=== PATIENT | female | born 1955 | race Caucasian/White ===

== ENCOUNTER 2025-03-02 06:34 | Inpatient (IN) | payer MEDICARE, OTHER ==
[~2025-03-02] VITALS: Ht 162.6 cm; Wt 90.7 kg
[2025-03-02] MEDS ORDERED: ANESTHESIA TRAY IN PYXIS 1 EA TRAY MC ONE (06:46)
[2025-03-02] MEDS ORDERED: SEVOFLURANE 250 ML BOTTLE IH ONE (07:04)
[2025-03-02] MEDS ORDERED: FENTANYL PF 100MCG/2ML AMPUL ONE ×2 (07:04→10:37)
[2025-03-02] MEDS ORDERED: SUGAMMADEX SODIUM 200 MG/2 ML VIAL IV ONE (07:04)
[2025-03-02] MEDS ORDERED: LIDOCAINE 2% JEL UROJET 10 ML MM ONE (07:04)
[2025-03-02] MEDS ORDERED: MIDAZOLAM HCL 2 MG/2ML VIAL ONE (07:05)
[2025-03-02] MEDS ORDERED: ROCURONIUM BROMIDE 50 MG/5 ML ONE (07:05)
[2025-03-02] MEDS ORDERED: OXYMETAZOLINE HCL NASAL SPRAY 30 ML BOTTLE NS ONE (07:05)
[2025-03-02 07:22] LABS: INR 1.09 (0.91-1.10)
[2025-03-02] MEDS ORDERED: LIDOCAINE 2%-EPI 1:100,000 30 ML VIAL ONE (07:44)
[2025-03-02] MEDS ORDERED: dexaMETHasone SOD PHOSPHATE 2 ML ONE (07:44)
[2025-03-02] MEDS ORDERED: VANCOMYCIN 1 GM VIAL ONE (07:44)
[2025-03-02 11:30] VITALS: BP 106/69; TEMP 97.5; O2SAT 97
[2025-03-02] MEDS ORDERED: ONDANSETRON HCL/PF 4 MG/2 ML VIAL IV PRN (11:30)
[2025-03-02] MEDS ORDERED: HYDROMORPHONE INJ 2 MG/ML DISP.SYRIN IV PRN (11:30)
[2025-03-02] MEDS ORDERED: BACL10TA PO (11:48)
[2025-03-02] MEDS ORDERED: ATOR40TA PO (11:48)
[2025-03-02] MEDS ORDERED: MECL-185 PO (11:48)
[2025-03-02] MEDS ORDERED: OMEP40CA21 PO (11:48)
[2025-03-02] MEDS ORDERED: MAGN400T26 PO (11:48)
[2025-03-02] MEDS ORDERED: AMLO-212 PO (11:48)
[2025-03-02] MEDS ORDERED: GABA-532 PO (11:48)
[2025-03-02] MEDS ORDERED: GABAPENTIN 100 MG CAPSULE PO PRN (12:30)
[2025-03-02] MEDS ORDERED: ACETAMINOPHEN 325 MG TABLET PO PRN (12:30)
[2025-03-02] MEDS ORDERED: MAGNESIUM HYDROXIDE 30 ML UDC PO PRN (12:30)
[2025-03-02] MEDS ORDERED: Z GUARD REMEDY 4 OZ OINT TP PRN (12:30)
[2025-03-02] MEDS ORDERED: BACLOFEN (10 MG) 10 MG TABLET PO PRN (12:30)
[2025-03-02] MEDS ORDERED: MAG HYDROX/AL HYDROX/SIMETH 30 ML UDC PO PRN (12:30)
[2025-03-02] MEDS ORDERED: ONDANSETRON HCL/PF 4 MG/2 ML VIAL IVP PRN (12:30)
[2025-03-02] MEDS ORDERED: MECLIZINE HCL 25 MG TABLET PO PRN (12:30)
[2025-03-02] MEDS ORDERED: PANTOPRAZOLE 40 MG TABLET.DR PO PRN (13:30)
[2025-03-02] MEDS: IV NS 0.9% 1,000 ML IV PRN (14:51)
[2025-03-02] MEDS: HYDROMORPHONE INJ 2 MG/ML DISP.SYRIN IV PRN (15:02)
[2025-03-02 16:00] VITALS: BP 113/63; TEMP 98.2; O2SAT 95
[2025-03-02 20:00] VITALS: BP 124/60; TEMP 98.1; O2SAT 95
[2025-03-02] MEDS: VANCOMYCIN 1 GM in IV D5W 250ml IV SCH (20:07)
[2025-03-02] MEDS: ATORVASTATIN 40 MG TABLET PO SCH (22:04)
[2025-03-02] MEDS: ZOLPIDEM TARTRATE 5 MG TABLET PO PRN (22:04)
[2025-03-03 06:27] LABS: PLATELET COUNT (AUTO) 284 K/uL (150-450); RED BLOOD CELL COUNT(AUTO) 4.55 MIL/uL (4.0-5.2); RED CELL DISTRIBUTION WIDTH 14.6 % (11.5-15.0); WHITE BLOOD COUNT (AUTO) 16.4 K/uL (4.3-11.0)
[2025-03-03 06:34] LABS: CALCIUM, SERUM 8.9 mg/dL (8.5-10.1); CREATININE 0.8 mg/dL (0.6-1.3); PHOSPHORUS 2.8 mg/dL (2.5-4.9); SODIUM SERUM 142.0 mmol/L (136-145); UREA NITROGEN, BLOOD 13.0 mg/dL (7-18)
[2025-03-03 07:30] VITALS: BP 111/60; TEMP 97.9; O2SAT 93
[2025-03-03] MEDS: AMLODIPINE BESYLATE 5 MG TABLET PO SCH (08:04)
[2025-03-03] MEDS: MAGNESIUM OXIDE 400 MG TABLET PO SCH (08:04)
[2025-03-03 16:00] VITALS: BP 105/55; TEMP 97.7; O2SAT 90
[2025-03-03 20:00] VITALS: BP 108/64; TEMP 97.9; O2SAT 94
[2025-03-03] MEDS: VANCOMYCIN 1 GM in IV D5W 250 ML IV SCH (20:26)
[2025-03-04] MEDS: ACETAMINOPHEN 325 MG TABLET PO PRN (06:18)
[2025-03-04 06:59] LABS: PLATELET COUNT (AUTO) 220 K/uL (150-450); RED BLOOD CELL COUNT(AUTO) 4.16 MIL/uL (4.0-5.2); RED CELL DISTRIBUTION WIDTH 14.7 % (11.5-15.0); WHITE BLOOD COUNT (AUTO) 10.7 K/uL (4.3-11.0)
[2025-03-04 07:00] VITALS: BP 128/79; TEMP 97.7; O2SAT 95
[2025-03-04 07:17] VITALS: TEMP 97.9
[2025-03-04 07:30] LABS: CALCIUM, SERUM 8.5 mg/dL (8.5-10.1); CREATININE 0.9 mg/dL (0.6-1.3); PHOSPHORUS 2.3 mg/dL (2.5-4.9); SODIUM SERUM 145.0 mmol/L (136-145); UREA NITROGEN, BLOOD 14.0 mg/dL (7-18)
[2025-03-04 08:30] VITALS: BP 128/79
== END 2025-03-04 13:58 | disposition home or self-care (01) | DRG 142 ==
LOC: DS 06:34 → MED 11:17
PROVIDERS: ADMIT Student in an Organized Health Care Education/Training Program; ATTEND Student in an Organized Health Care Education/Training Program
PROC: 0NSR04Z Reposition Maxilla with Internal Fixation Device, Open Approach (ICD-10-PCS; 2025-03-02)
PROC: 0NBV0ZZ Excision of Left Mandible, Open Approach (ICD-10-PCS; 2025-03-02)
PROC: 0NUV07Z Supplement Left Mandible with Autologous Tissue Substitute, Open Approach (ICD-10-PCS; 2025-03-02)
PROC: 0NUR07Z Supplement Maxilla with Autologous Tissue Substitute, Open Approach (ICD-10-PCS; 2025-03-02)
PROC: 0NBR0ZZ Excision of Maxilla, Open Approach (ICD-10-PCS; 2025-03-02)
PROC: 0NBT0ZZ Excision of Right Mandible, Open Approach (ICD-10-PCS; 2025-03-02)
PROC: 0CBJ0ZX Excision of Minor Salivary Gland, Open Approach, Diagnostic (ICD-10-PCS; 2025-03-02)
PROC: 0NSV04Z Reposition Left Mandible with Internal Fixation Device, Open Approach (ICD-10-PCS; principal; 2025-03-02 07:30)
DX: S02.69XB Fracture of mandible of other specified site, initial encounter for open fracture (principal); D11.9 Benign neoplasm of major salivary gland, unspecified; S02.40DB Maxillary fracture, left side, initial encounter for open fracture; S02.40CB Maxillary fracture, right side, initial encounter for open fracture; I10 Essential (primary) hypertension; M27.2 Inflammatory conditions of jaws; D16.5 Benign neoplasm of lower jaw bone; D72.829 Elevated white blood cell count, unspecified; E78.5 Hyperlipidemia, unspecified; Z87.11 Personal history of peptic ulcer disease; Z91.199 Patient's noncompliance with other medical treatment and regimen due to unspecified reason; X58.XXXA Exposure to other specified factors, initial encounter; Y93.9 Activity, unspecified; Y92.009 Unspecified place in unspecified non-institutional (private) residence as the place of occurrence of the external cause
CPT/HCPCS: 36415; 80048-TC; 83735-TC; 84100-TC; 85025-TC; 85610-TC; 85730-TC; 87081-TC; 88305-TC; 88311-TC; A4217; A4223; A4338; C1713; G0378; J1100; J1171; J1885; J2250; J2405; J2704; J3010; J3373; J3490; J7030; J7060